=== PATIENT | female | born 1990 | race Caucasian/White ===

== ENCOUNTER 2022-09-10 12:40 | Outpatient (CLI) | payer BC, SELFPAY ==
--- NOTE | 2022-09-10 12:58 | MM_ITS ---
WS: [id number] BILATERAL 3D TOMOSYNTHESIS DIGITAL DIAGNOSTIC MAMMOGRAPHY WITH CAD CLINICAL INFORMATION: BILAT BREAST LUMPS HISTORY: Bilateral breast lumps. COMPARISON: None. TECHNIQUE: Bilateral CC, MLO, and ML views. FINDINGS: The breasts are composed of heterogeneous fibroglandular density, which can limit the detection of sm all underlying mass lesions. Multiple dense parenchymal densities bilaterally with 2 corresponding pa lpable markers. Ultrasound described below. ULTRASOUND BREAST BILATERAL TECHNIQUE: Ultrasound bilateral breast focused area of concern. CLINICAL INFORMATION: BILAT BREAST LUMPS FINDINGS: Multiple bilateral breast cysts largest in the RIGHT breast internal debris measuring 2.6 x 3.2 x 3.8 cm. Additional smaller cysts bilaterally. RIGHT BREAST: Hypoechoic solid lesion RIGHT breast at the 10:00 position 4 cm from the nipple measuri ng 8.9 x 3.1 x 9.2 mm suspicious for fibroadenoma. LEFT BREAST: Hypoechoic solid lesions at the 3:00 areola measuring 15 x 4.6 x 9.3 mm. Additional smaller solid lesion at the 2:00 position 1 cm the nipple measuring 4.8 x 3.0 x 5.4 mm. Additional solid lesion at the 3:00 position 2 cm from the nipple measuring 10.3 x 4.8 x 8.5 mm. Above hypoechoic solid lesions most likely represent fibroadenomas in a patient this age. Recommend 6 month follow-up ultrasound. MM/[place] [id number] IMPRESSION: BI-RADS: 3-Probably Benign FOLLOW UP: 6 Month Follow-up Recommend 6 month follow-up bilateral breast ultrasound with attention to the s uspected fibroadenomas.
--- NOTE | 2022-09-10 13:40 | US_ITS ---
WS: [id number] BILATERAL 3D TOMOSYNTHESIS DIGITAL DIAGNOSTIC MAMMOGRAPHY WITH CAD CLINICAL INFORMATION: BILAT BREAST LUMPS HISTORY: Bilateral breast lumps. COMPARISON: None. TECHNIQUE: Bilateral CC, MLO, and ML views. FINDINGS: The breasts are composed of heterogeneous fibroglandular density, which can limit the detection of sm all underlying mass lesions. Multiple dense parenchymal densities bilaterally with 2 corresponding pa lpable markers. Ultrasound described below. ULTRASOUND BREAST BILATERAL TECHNIQUE: Ultrasound bilateral breast focused area of concern. CLINICAL INFORMATION: BILAT BREAST LUMPS FINDINGS: Multiple bilateral breast cysts largest in the RIGHT breast internal debris measuring 2.6 x 3.2 x 3.8 cm. Additional smaller cysts bilaterally. RIGHT BREAST: Hypoechoic solid lesion RIGHT breast at the 10:00 position 4 cm from the nipple measuri ng 8.9 x 3.1 x 9.2 mm suspicious for fibroadenoma. LEFT BREAST: Hypoechoic solid lesions at the 3:00 areola measuring 15 x 4.6 x 9.3 mm. Additional smaller solid lesion at the 2:00 position 1 cm the nipple measuring 4.8 x 3.0 x 5.4 mm. Additional solid lesion at the 3:00 position 2 cm from the nipple measuring 10.3 x 4.8 x 8.5 mm. Above hypoechoic solid lesions most likely represent fibroadenomas in a patient this age. Recommend 6 month follow-up ultrasound. US/US breast BI limited* [id number] IMPRESSION: BI-RADS: 3-Probably Benign FOLLOW UP: 6 Month Follow-up Recommend 6 month follow-up bilateral breast ultrasound with attention to the s uspected fibroadenomas.
== END 2022-09-10 12:41 | disposition home or self-care (01) ==
LOC: RAD 12:42
PROVIDERS: Visit Provider Registered Nurse
DX: N63.10 Unspecified lump in the right breast, unspecified quadrant (principal); N63.20 Unspecified lump in the left breast, unspecified quadrant
CPT/HCPCS: 76642; 77062

== ENCOUNTER → 2024-04-10 14:07 | Outpatient (BNVA) | payer BC, SELFPAY | PROVIDERS: Visit Provider Nurse Practitioner | DX: R39.9 Unspecified symptoms and signs involving the genitourinary system (principal) | CPT/HCPCS: 81000 ==